=== PATIENT | female | born 1950 | race Caucasian/White ===

== ENCOUNTER 2020-12-04 13:45 | Outpatient (CLI) | payer MEDICARE, OTHER, SELFPAY ==
--- NOTE | 2020-12-04 13:53 | XR_ITS ---
WS: [id number] DEXA (DUAL ENERGY X-RAY ABSORPTIOMETRY) Bone mineral density was performed using a [employer] machine. HISTORY: POSTMENOPAUSAL COMPARISON: None available. Lumbar spine BMD (L1-L4): 1.152 g/cm2 T score: -0.2 Z score: 1.7 Total hip BMD: Left: 0.802 g/cm2. T score: -1.6 Z score: -0.1 Right: 0.725 g/cm2. T score: -2.2 Z score: -0.7 10 year probability of a major osteoporotic fracture is 14%. Very mild RIGHT curvature lumbar spine. XR/XR DEXA axial skeleton* [id number] IMPRESSION: OSTEOPENIA based upon the WHO classification for females.
== END 2020-12-04 13:46 | disposition home or self-care (01) ==
PROVIDERS: PCP Family Medicine; Visit Provider Family Medicine
DX: Z78.0 Asymptomatic menopausal state (principal); M85.88 Other specified disorders of bone density and structure, other site
CPT/HCPCS: 77080

== ENCOUNTER 2022-12-29 12:49 | Outpatient (CLI) | payer MEDICARE, SELFPAY ==
--- NOTE | 2022-12-29 13:03 | XR_ITS ---
WS: [id number] SCREENING DEXA SCAN [place] CLINICAL INFORMATION: POSTMENOPAUSAL COMPARISON: December 04, 2020 FINDINGS: The L1-L4 bone mineral density measures 1.181 g/cm2. This corresponds to a T score score of 0.0 and Z score of 2.0. Left femoral neck bone mineral density measures 0.774 g/cm2. This corresponds to a T score of -1.9 an d Z score of -0.2. Right femoral neck bone mineral density measures 0.694 g/cm2. This corresponds to a T score -2.5of an d Z score of -0.8. Mean femoral neck bone mineral density measures 0.734 g/cm2. This corresponds to a T score of -2.2 an d Z score of -0.5. XR/XR DEXA axial skeleton* [id number] IMPRESSION: Normal bone mineralization lumbar spine. Osteopenia femoral necks at the upper end of the range. Patient's FRAX calculated 10 year probability for major osteoporotic fracture i s 16.2 % and osteoporotic hip fracture is 5.1%. Bone mineral density lumbar spine increased 2.5% since 2020. Some of this likel y due to endplate sclerosis. Bone mineral density in the femoral necks decreased -3.9% since 2020
== END 2022-12-29 12:50 | disposition home or self-care (01) ==
PROVIDERS: PCP Family Medicine; Visit Provider Family Medicine
DX: Z78.0 Asymptomatic menopausal state (principal); M85.88 Other specified disorders of bone density and structure, other site
CPT/HCPCS: 77080